=== PATIENT | female | born 1995 | race Caucasian/White ===

== ENCOUNTER → 2024-04-28 | Outpatient (CLI) | payer BC ==
--- NOTE | 2024-04-28 12:06 | US ---
EXAMINATION TYPE: US thyroid st tissue head/neck DATE OF EXAM: 04/28/2024 COMPARISON: NONE CLINICAL INDICATION: Female, 28 years old with history of E04.1 NONTOXIC SINGLE THYROID NODULE; Pt [facility] h/o nodule visualized at outside facility TECHNIQUE: Grayscale and color Doppler imaging of the thyroid gland. FINDINGS: GLAND SIZE: Right Lobe: 4.8 x 1.4 x 1.9 cm Overall Parenchyma: homogeneous Left Lobe: 4.7 x 1.2 x 1.6 cm Overall Parenchyma: homogeneous Isthmus Thickness: 0.2 cm NODULES RIGHT: # of nodules measured on right: 0 LEFT: # of nodules measured on left: 0 ISTHMUS: # of nodules measured in the isthmus: 0 Bilateral neck scanned, no evidence of lymphadenopathy. Thyroid appeared wnl. IMPRESSION: No thyroid nodules. No lymphadenopathy or suspicious finding. [facility], , 04/28/2024 12:04 PM
== END | disposition home or self-care (01) ==
LOC: RADUSWWP 10:30
PROVIDERS: ATTEND Family Medicine
DX: E04.1 Nontoxic single thyroid nodule (principal)
CPT/HCPCS: 76536

== ENCOUNTER → 2024-04-28 | Outpatient (CLI) | payer BC | LOC: CPPFTMAIN 10:53 | PROVIDERS: ATTEND Family Medicine | DX: J45.990 Exercise induced bronchospasm (principal) | CPT/HCPCS: 94060; 94726; 94729 ==